=== PATIENT | male | born 1980 | race Caucasian/White ===

== ENCOUNTER 2017-11-29 22:08 | Emergency (ER) | payer BC ==
[2017-11-29] MEDS ORDERED: Acetaminophen/HYDROcodone 325-5 MG Tab PO ONE (22:41)
[2017-11-29] MEDS ORDERED: Orphenadrine 100 MG Tab.ER PO STA (22:41)
--- NOTE | 2017-11-30 00:28 | EDM.PDOC ---
ED HPI GENERAL MEDICAL PROBLEM - General Chief Complaint: Back Pain or Injury Stated Complaint: BACK PAIN Time Seen by Provider: 11/29/17 22:29 Source of Information: Reports: Patient History Limitations: Reports: No Limitations - History of Present Illness INITIAL COMMENTS - FREE TEXT/NARRATIVE: The patient states that he developed sudden onset left flank pain after he coughed, around 16:00 this afternoon, while driving. He states that the pain is minimal if he remains still, but worse with any movement. The pain does not radiate. He denies recent dyspnea, chest pain, palpitations, nausea, vomiting, constipation, diarrhea, urinary symptoms, or fever. No prior similar symptoms. The patient does not have a PCP. Left Middle Back Pain Score (Numeric/FACES): 10 - Related Data Allergies Allergy/AdvReac Type Severity Reaction Status Date / Time No Known Allergies Allergy Verified 11/29/17 22:17 Home Meds: Home Meds Acetaminophen/HYDROcodone [Woodruff 325-5 MG] 1 - 2 tab PO Q6H PRN #14 tablet 11/30 [Rx] Orphenadrine [Norflex] 1 tab PO Q12H PRN #14 tab.er 11/30/17 [Rx] Past Medical History Musculoskeletal History: Reports: Fracture (Neck, requiring halo. Rt femur, requiring mindy) Endocrine/Metabolic History: Reports: Obesity/BMI 30+ - Past Surgical History HEENT Surgical History: Reports: Oral Surgery ([place] teeth extraction) Neurological Surgical History: Reports: C-Spine (Halo) Musculoskeletal Surgical History: Reports: Other (See Below) (Right femur mindy) Social & Family History - Family History Family Medical History: Noncontributory - Tobacco Use Smoking Status *Q: Current Every Day Smoker Years of Tobacco use: 10 Packs/Tins Daily: 1 - Alcohol Use Alcohol Use History: Yes Alcohol Use Frequency: Socially - Recreational Drug Use Recreational Drug Use: No - Living Situation & Occupation Living situation: Reports: , with Spouse, with Family (2 kids) Occupation: Employed ([employer]) ED ROS GENERAL - Review of Systems Review Of Systems: ROS reveals no pertinent complaints other than HPI. ED EXAM,LOWER BACK PAIN/INJURY - Physical Exam Exam: See Below Exam Limited By: No Limitations General Appearance: Alert, WD/WN, Mild Distress (Appears uncomfortable) Eye Exam: Bilateral Eye: Normal Inspection Ears: Normal External Exam, Hearing Grossly Normal Nose: Normal Inspection, No Blood Throat/Mouth: Normal Inspection, Normal Lips, Normal Voice, No Airway Compromise Head: Atraumatic, Normocephalic Neck: Normal Inspection, Full Range of Motion Respiratory/Chest: No Respiratory Distress, Lungs Clear, Normal Breath Sounds, No Accessory Muscle Use Cardiovascular: Normal Peripheral Pulses, Regular Rate, Rhythm, No Gallop, No JVD, No Murmur, No Rub GI/Abdominal: Normal Bowel Sounds, Soft, Non-Tender, No Organomegaly, No Distention, No Abnormal Bruit, No Mass, Other (Obese) (Male) Exam: Deferred Rectal (Males) Exam: Deferred Back Exam: Normal Inspection, Paraspinal Tenderness (left only, at about L1 level). No: Vertebral Tenderness Extremities: Normal Inspection, Normal Range of Motion, No Pedal Edema, Normal Capillary Refill Neurological: Alert, No Motor/Sensory Deficits, Oriented x 3 Psychiatric: Normal Affect Skin Exam: Warm, Dry, Intact, Normal Color, No Rash Course - Vital Signs Last Recorded V/S: Last Vital Signs Temp 36.2 C 11/29/17 22:13 Pulse 88 11/29/17 22:13 Resp 16 11/29/17 22:13 BP 167/103 H 11/29/17 22:13 Pulse Ox 100 11/29/17 22:13 - Orders/Labs/Meds Labs: Laboratory Tests 11/29/17 Range/Units 22:45 Urine Color Yellow (Yellow) Urine Appearance Clear (Clear) Urine pH 5.5 (5.0-8.0) Ur Specific [place] > or = 1.030 (1.005-1.030) Urine Protein 1+ H (Negative) Urine Glucose (UA) Negative (Negative) Urine Ketones Negative (Negative) Urine Occult Blood Negative (Negative) Urine Nitrite Negative (Negative) Urine Bilirubin Negative (Negative) Urine Urobilinogen 0.2 (0.2-1.0) Ur Leukocyte Esterase Negative (Negative) Urine RBC 0-5 (0-5) /hpf Urine WBC 0-5 (0-5) /hpf Ur Epithelial Cells 0-5 (0-5) /hpf Urine Bacteria Rare (FEW) /hpf Hyaline Casts 0-5 (0-5) /lpf Fine Granular Casts 0-5 (0-5) /lpf Urine Mucus Many H (FEW) /hpf Meds: Medications Discontinued Medications Generic Name Dose Route Start Last Admin Trade Name Nathanq PRN Reason Stop Dose Admin Hydrocodone Bitart/Acetaminophen 2 tab 11/29/17 22:41 11/29/17 22:44 Woodruff 325-5 Mg PO 11/29/17 22:42 2 tab ONETIME ONE Administration Orphenadrine Citrate 100 mg 11/29/17 22:41 11/29/17 22:44 Norflex PO 11/29/17 22:42 100 mg ONETIME STA Administration - Re-Assessments/Exams Free Text/Narrative Re-Assessment/Exam: 11/30/17 00:22 The patient's urinalysis shows no blood. This is most likely a muscle spasm, and unlikely to be a ureterolith. I will prescribe Woodruff and Norflex, and refer him to Dr. Valderrama, should his symptoms not improve. Departure - Departure Time of Disposition: 00:23 Disposition: Home, Self-Care 01 Condition: Fair Clinical Impression: Muscle spasm of back - Discharge Information Prescriptions: Acetaminophen/HYDROcodone [Woodruff 325-5 MG] 1 - 2 tab PO Q6H PRN #14 tablet PRN Reason: Pain (Severe 7-10) Orphenadrine [Norflex] 1 tab PO Q12H PRN #14 tab.er PRN Reason: Muscle Spasm Instructions: Muscle Cramps and Spasms, [id number] Referrals: PCP,Brian [Primary Care Provider] - Merlene Valderrama [Physician] - Forms: ED Department Discharge Additional Instructions: You were seen in the emergency room for left flank pain. Workup in the ER included a urinalysis, which showed no blood. Based on your history and physical examination, your pain is MOST LIKELY due to a muscle spasm. Take [id number] ibuprofen 2-3 tablets (400-600 mg), with food, as needed for pain. You have been started on the narcotic pain reliever Woodruff and a muscle relaxant Norflex. Take 1-2 tablets of Woodruff up to every 6 hours, as needed for pain not relieved by ibuprofen. If you take Woodruff, do not drive or operate heavy machinery for 10 hours afterwards. Woodruff may cause constipation, so consider taking a stool softener. Take one tablet of Norflex every 12 hours, as needed for muscle spasm. If your pain has not resolved within the next few days, please follow-up with Dr. Valderrama in the clinic. If any other problems, please do not hesitate to return to the ER.
== END 2017-11-30 00:40 | disposition home or self-care (01) ==
LOC: JD.ED 22:08
DX: M62.830 Muscle spasm of back (principal); F17.210 Nicotine dependence, cigarettes, uncomplicated
CPT/HCPCS: 81001; 99283; A9270